=== PATIENT | female | born 1945 | race African-American/Black ===

== ENCOUNTER 2022-04-05 11:38 | Emergency (ER) | payer MEDICARE, SELFPAY ==
--- NOTE | ~2022-04-05 | XR_ITS ---
XR elbow RT min 3V DATE: 04/05/2022 12:28 INDICATION: Elbow swelling. No known injury. TECHNIQUE: 4 views COMPARISON: None FINDINGS: There is prominent dorsal soft tissue swelling overlying the olecranon process, consistent with olecranon bursitis. No fracture or dislocation or joint effusion. No periosteal reaction or bone destruction. IMPRESSION: Olecranon bursitis Reviewed, dictated and finalized at location A. IMPRESSION: Olecranon bursitis
[2022-04-05 11:48] VITALS: BP 148/64; PULSE 84; RESP 16; TEMP 36.5; O2SAT 100
--- NOTE | 2022-04-05 13:12 | ED.UPPEXIN ---
HPI - Extremity Injury (Upper) General Chief Complaint: Extremity Injury, Upper Stated Complaint: swelling right elbow Time Seen by Provider: 04/05/22 12:22 History of Present Illness HPI narrative: 76-year-old female presenting with swelling in her right elbow, she states that this is happened in the past where she has needed to be drained, states that she has already iced it, elevated and is already less swelling. Denies any pain, or any recent trauma, states that she has been using her arms a lot recently at home and has been quite busy. No fevers no chills. No pain with movement. Related Data Allergies Allergy/AdvReac Type Severity Reaction Status Date / Time melon Allergy Gastrointestinal Verified 04/05/22 12:20 Upset Review of Systems Review of Systems: CONST: No fever. M/S: Right elbow swelling PMFSH Past Medical History Medical History (Updated 04/06/22 @ 06:59 by Lucrecia Garsia MD) Bursitis Exam Narrative: EXAMINATION OF ORGAN SYSTEMS/BODY AREAS: Constitutional: Vital signs per nursing GENERAL:[No acute distress, non-toxic appearing.] LUNGS: Nonlabored breathing. HEART: [Regular rate and rhythm] EXT: Normal range of motion; swelling of the right elbow that is painless, full painless range of motion. Neurovascularly intact SKIN: No erythema of the elbow NEURO: [Alert and oriented x 3. No gross focal sensory or strength deficits.] PSYCH: Normal affect Course Vital Signs Vital signs: Vital Signs Temperature 97.7 F 04/05/22 11:48 Pulse Rate 84 04/05/22 11:48 Respiratory Rate 16 04/05/22 11:48 Blood Pressure 148/64 H 04/05/22 11:48 Pulse Oximetry 100 04/05/22 11:48 Oxygen Delivery Room Air 04/05/22 11:48 Temperature 97.7 F 04/05/22 11:48 Pulse Rate 84 04/05/22 11:48 Respiratory Rate 16 04/05/22 11:48 Blood Pressure 148/64 H 04/05/22 11:48 Pulse Oximetry 100 04/05/22 11:48 Oxygen Delivery Room Air 04/05/22 11:48 MDM - Extremity Injury (Upper) MDM Narrative Medical decision making narrative: 76-year-old female presenting this morning, vital stable, exam shows painless swelling and range of motion of the right elbow, consistent with bursitis, doubt fracture or septic joint without any pain, x-rays consistent with olecranon bursitis, Keron wrap applied and patient stable for discharge home with follow-up with her own doctor. Return precautions provided. Discharge Plan Discharge Clinical Impression: Bursitis, olecranon Patient Disposition: Home, Self-Care Condition: Stable Instructions: Antibiotic Form, Elbow Bursitis (ED) Additional Instructions: Please keep the elbow elevated and in the compression wrap if possible. You can follow up with your doctor if it doesn't improve in 1-2 weeks or if you notice any pain, redness, fevers or chills. Follow-up/Referrals: PHYSICIAN NOT ON STAFF,NONSTAFF [Primary Care Provider] -
== END 2022-04-05 13:26 | disposition home or self-care (01) ==
PROVIDERS: Emergency Provider Emergency Medicine
DX: M70.21 Olecranon bursitis, right elbow (principal)
CPT/HCPCS: 73080; 99283

== ENCOUNTER 2022-11-03 09:02 | Outpatient (CLI) | payer MEDICARE, SELFPAY ==
[2022-11-03 09:22] LABS: Basophils Percent Auto 0.7 % (0.2-1.2); Eosinophils Absolute Auto 0.1 K/mm3 (0-0.3); Eosinophils Percent Auto 1.7 % (0-4.4); Hematocrit 34.9 % (37.0-47.0); Hemoglobin 11.7 g/dL (12.0-15.0); Immature Granulocyte Absolute 0.01 K/mm3 (0.00-0.031); Immature Granulocyte Percent A 0.2 % (0-0.5); Lymphocytes Absolute Auto 2.46 K/mm3 (0.9-3.2); Lymphocytes Percent Auto 41.3 % (18.3-44.2); Mean Corpuscular HGB Conc 33.5 g/dl (32-36); Mean Corpuscular Hemoglobin 31.9 pg (26-34); Mean Corpuscular Volume 95.1 fl (80-100); Mean Platelet Volume 8.9 fl (7.4-10.4); Monocytes Absolute Auto 0.5 K/mm3 (0.1-0.6); Monocytes Percent Auto 8.1 % (2.6-8.5); Neutrophils Absolute Auto 2.9 K/mm3 (1.3-6.7); Platelet Count Result 253 k/mm3 (150-375); Red Blood Count 3.67 M/mm3 (4.2-5.4)
[2022-11-03 10:41] LABS: Alanine Aminotransferase 14 U/L (6-35); Albumin Level 4.2 g/dL (3.5-5.1); Alkaline Phosphatase 78 U/L (38-126); Anion Gap 8 mmol/L (8-16); Aspartate Amino Transferase 20 U/L (14-36); Bilirubin,Total 0.5 mg/dL (0.2-1.3); Blood Urea Nitrogen 19 mg/dL (7-17); Calcium 9.4 mg/dL (8.4-10.2); Carbon Dioxide 27 mmol/L (22-30); Chloride 104 mmol/L (98-107); Cholesterol 221 mg/dL (0-200); Estimated Glomerular Filt Rate > 60; Glucose 171 mg/dL (65-110); HDL Direct 104 mg/dL; Potassium 3.9 mmol/L (3.4-5.0); Sodium 139 mmol/L (137-145); Triglycerides 47 mg/dL (<150)
[2022-11-03 10:52] LABS: LDL Cholesterol Direct 72 mg/dL
[2022-11-03 10:59] LABS: Vitamin D 25 Hydroxy 56.8 ng/mL
[2022-11-03 11:25] LABS: Hemoglobin A1C 7.8 % (<5.7)
[2022-11-03 11:40] LABS: Creatinine Urine 57.9 mg/dL
[2022-11-03 13:04] LABS: MALB Creatinine Ratio < 10.4 mg/g (0-30); Microalbumin Urine Random < 6.0 mg/L (0-16.7)
== END 2022-11-03 09:03 | disposition home or self-care (01) ==
LOC: ANHLAB 09:03
PROVIDERS: PCP Family Medicine; Visit Provider Internal Medicine Hematology & Oncology
DX: E53.8 Deficiency of other specified B group vitamins (principal); E55.9 Vitamin D deficiency, unspecified; E11.9 Type 2 diabetes mellitus without complications; E78.5 Hyperlipidemia, unspecified; I10 Essential (primary) hypertension
CPT/HCPCS: 36415; 80053; 80061; 82043; 82306; 82607; 83036; 84443; 85025

== ENCOUNTER 2023-01-19 12:36 | Outpatient (CLI) | payer MEDICARE, SELFPAY ==
[2023-01-19 19:24] LABS: Basophils Percent Auto 0.5 % (0.2-1.2); Eosinophils Absolute Auto 0.1 K/mm3 (0-0.3); Hematocrit 38.3 % (37.0-47.0); Hemoglobin 12.9 g/dL (12.0-15.0); Immature Granulocyte Absolute 0.01 K/mm3 (0.00-0.031); Immature Granulocyte Percent A 0.1 % (0-0.5); Lymphocytes Absolute Auto 1.79 K/mm3 (0.9-3.2); Lymphocytes Percent Auto 23.3 % (18.3-44.2); Mean Corpuscular HGB Conc 33.7 g/dl (32-36); Mean Corpuscular Hemoglobin 31.1 pg (26-34); Mean Corpuscular Volume 92.3 fl (80-100); Mean Platelet Volume 9.7 fl (7.4-10.4); Monocytes Absolute Auto 0.5 K/mm3 (0.1-0.6); Monocytes Percent Auto 6.1 % (2.6-8.5); Neutrophils Absolute Auto 5.3 K/mm3 (1.3-6.7); Platelet Count Result 271 k/mm3 (150-375); Red Blood Count 4.15 M/mm3 (4.2-5.4); Red Cell Distribution Width 14.1 % (11.5-14.5); White Blood Count 7.7 K/mm3 (4.5-10.0)
[2023-01-19 19:55] LABS: Iron 92 ug/dL (37-170)
[2023-01-19 20:06] LABS: Percent Iron Saturation 31 % (20-50)
[2023-01-19 20:27] LABS: Alanine Aminotransferase 18 U/L (6-35); Albumin Level 4.9 g/dL (3.5-5.1); Alkaline Phosphatase 90 U/L (38-126); Anion Gap 7 mmol/L (8-16); Aspartate Amino Transferase 41 U/L (14-36); Bilirubin,Total 0.6 mg/dL (0.2-1.3); Blood Urea Nitrogen 17 mg/dL (7-17); Calcium 10.2 mg/dL (8.4-10.2); Carbon Dioxide 29 mmol/L (22-30); Chloride 105 mmol/L (98-107); Estimated Glomerular Filt Rate > 60; Glucose 109 mg/dL (65-110); Potassium 3.9 mmol/L (3.4-5.0); Sodium 141 mmol/L (137-145)
== END 2023-01-19 12:37 | disposition home or self-care (01) ==
LOC: ANHGOSHLAB 12:39
PROVIDERS: PCP Family Medicine; Visit Provider Family Medicine
DX: D64.9 Anemia, unspecified (principal); I10 Essential (primary) hypertension; E11.9 Type 2 diabetes mellitus without complications
CPT/HCPCS: 36415; 80053; 82728; 83036; 83540; 83550; 85025

== ENCOUNTER 2023-01-24 08:21 | Outpatient (CLI) | payer MEDICARE, SELFPAY ==
--- NOTE | ~2023-01-24 | MM_ITS ---
EXAMINATION: MM screening [place] BI w [place] HISTORY: Screening TECHNIQUE: Craniocaudal and mediolateral oblique 3-D tomosynthesis images were obtained and synthetic 2-D images were generated. CAD analysis was submitted and interpreted. COMPARISON: No prior mammogram is available for comparison at this institution. BREAST PARENCHYMAL COMPOSITION: The breasts are heterogeneously dense, which may obscure small masses . FINDINGS: There is no evidence of suspicious mass, calcification, or architectural distortion to sugg est malignancy in either breast. There has been no suspicious interval change. IMPRESSION: 1. No mammographic evidence of malignancy. 2. Recommend routine screening mammography in one year. BI-RADS Category 1: Negative Reviewed, dictated and finalized at location A.
--- NOTE | ~2023-01-24 | DEXA_ITS ---
Bone Density Report Name: STACEY URIBE Age: 77 Sex: Female Ethnicity: White Date of : 1945 Indication: postmenopausal; screening for osteoporosis; height loss; hysterectomy; Referring Provider: JESSICA MANRIQUE Study: Bone densitometry was performed. Exam Date: January 24, 2023 Accession number: [id number] Bone Density: Region BMD T-score Z-score Classification AP Spine(L1-L4) 0.945 -0.9 1.5 Normal Femoral Neck (Left) 0.925 0.7 2.8 Normal Total Hip (Left) 0.924 -0.1 1.7 Normal Femoral Neck (Right) 0.884 0.3 2.4 Normal Total Hip (Right) 0.889 -0.4 1.4 Normal Total Hip Mean 0.907 -0.3 1.6 Normal World Health Organization criteria for BMD impression classify patients as: Normal (T-score at or above -1.0), Osteopenia (T-score between -1.0 and -2.5), or Osteoporosis (T-score at or below -2.5). 10-year Fracture Risk: FRAX not reported because: All T-scores for Spine Total, Hip Total, Femoral Neck at or above -1.0 Clinical Information Provided by Patient: Has used the following medications: Vitamin D, Calcium Has the following medical conditions: Hysterectomy Patient maximum height was 67 Menopause Age: 42 Drinks caffeinated beverages Onset of menses at age 18 Number of children 2 Impression: UNAPPROVED The patient has normal bone mass. Discussion: UNAPPROVED BONE DENSITY IS ABOVE THE MINIMUM DESIRABLE LEVEL AT ALL SKELETAL SITES TESTED. This patient?s bone mineral density is above the minimum desirable level (T-score -1.0 or better) at all sites measured. The patient should follow a healthful lifestyle (good nutrition with adequate calcium and vitamin D, and appropriate weight-bearing exercise). Follow-Up: UNAPPROVED Consider repeating this study in 5 years or sooner if there is some new clinical indication. Reported by: JORGE A on 01/24/2023 8:58:00 AM. Reviewed, dictated and finalized at location [facility]
== END 2023-01-24 08:22 | disposition home or self-care (01) ==
LOC: ANHIMG 08:22
PROVIDERS: PCP Family Medicine; Visit Provider Family Medicine
DX: Z12.31 Encounter for screening mammogram for malignant neoplasm of breast (principal); Z78.0 Asymptomatic menopausal state
CPT/HCPCS: 77063; 77067; 77080

== ENCOUNTER 2024-10-29 09:59 | Outpatient (CLI) | payer MEDICARE, SELFPAY ==
[2024-10-29 10:23] LABS: Basophils Percent Auto 0.4 % (0.2-1.2); Eosinophils Absolute Auto 0.1 K/mm3 (0-0.3); Eosinophils Percent Auto 1.7 % (0-4.4); Hematocrit 38.4 % (37.0-47.0); Hemoglobin 12.7 g/dL (12.0-15.0); Immature Granulocyte Absolute 0.01 K/mm3 (0.00-0.031); Immature Granulocyte Percent A 0.1 % (0-0.5); Lymphocytes Absolute Auto 2.65 K/mm3 (0.9-3.2); Lymphocytes Percent Auto 38.4 % (18.3-44.2); Mean Corpuscular HGB Conc 33.1 g/dl (32-36); Mean Corpuscular Volume 93.7 fl (80-100); Mean Platelet Volume 8.6 fl (7.4-10.4); Monocytes Absolute Auto 0.7 K/mm3 (0.1-0.6); Monocytes Percent Auto 9.6 % (2.6-8.5); Neutrophils Absolute Auto 3.4 K/mm3 (1.3-6.7); Neutrophils Percent Auto 49.8 % (45.5-73.1); Platelet Count Result 282 k/mm3 (150-375); Red Cell Distribution Width 14.3 % (11.5-14.5); White Blood Count 6.9 K/mm3 (4.5-10.0)
[2024-10-29 12:11] LABS: Hemoglobin A1C 7.2 % (<5.7)
[2024-10-29 12:38] LABS: Creatinine Urine 50.8 mg/dL
[2024-10-29 12:39] LABS: LDL Cholesterol Direct 54 mg/dL
[2024-10-29 12:41] LABS: Alanine Aminotransferase 14 U/L (6-35); Albumin Level 4.2 g/dL (3.5-5.1); Alkaline Phosphatase 84 U/L (38-126); Anion Gap 2 mmol/L (4-12); Aspartate Amino Transferase 26 U/L (14-36); Bilirubin,Total 0.6 mg/dL (0.2-1.3); Blood Urea Nitrogen 15 mg/dL (7-17); Calcium 9.6 mg/dL (8.4-10.2); Carbon Dioxide 26 mmol/L (22-30); Chloride 106 mmol/L (98-107); Cholesterol 201 mg/dL (0-200); Estimated Glomerular Filt Rate > 60; Glucose 164 mg/dL (65-110); Potassium 3.8 mmol/L (3.4-5.0); Sodium 134 mmol/L (137-145); Triglycerides 50 mg/dL (<150)
[2024-10-29 13:01] LABS: HDL Direct 120 mg/dL
[2024-10-29 13:02] LABS: MALB Creatinine Ratio < 11.8 mg/g (0-30); Microalbumin Urine Random < 6.0 mg/L (0-16.7); Vitamin D 25 Hydroxy 53.7 ng/mL
== END 2024-10-29 10:00 | disposition home or self-care (01) ==
LOC: ANHLAB 10:02
PROVIDERS: PCP Family Medicine; Visit Provider Family Medicine
DX: E78.5 Hyperlipidemia, unspecified (principal); E11.9 Type 2 diabetes mellitus without complications; I10 Essential (primary) hypertension; E53.8 Deficiency of other specified B group vitamins; E55.9 Vitamin D deficiency, unspecified
CPT/HCPCS: 36415; 80053; 80061; 82043; 82306; 82607; 83036; 84443; 85025

== ENCOUNTER 2024-11-08 10:10 | Emergency (ER) | payer MEDICARE, SELFPAY ==
--- NOTE | ~2024-11-08 | XR_ITS ---
EXAMINATION: XR_[id number]_CR DATE: 11/08/2024 12:40 INDICATION: Neck pain. Left shoulder pain. TECHNIQUE: 4 views of cervical spine were obtained. COMPARISON: None. FINDINGS: There is 4 degrees levocurvature of cervical spine. There is kyphosis of cervical spine. Th ere is 2 mm retrolisthesis of C4 on C5, C5 on C6, and C6 on C7. Vertebral body heights are normal. Th ere is moderately decreased disc height at C4-C5 and severely decreased disc height at C5-C6 and C6-C 7. There is multilevel mild facet joint osteoarthritis. There is mild central canal stenosis at C4-C5 , C5-C6, and C6-C7. No prevertebral soft tissue swelling. IMPRESSION: 1. Severe cervical spondylosis. Reviewed, dictated and finalized at location A. [employer]
[2024-11-08 10:12] VITALS: BP 150/74; PULSE 112; RESP 16; TEMP 36.2; O2SAT 100
[2024-11-08 11:56] VITALS: BP 143/92; PULSE 105; RESP 20; O2SAT 100
[2024-11-08] MEDS: KETOROLAC 30 MG/ML VIAL (*BKC) IM (12:31)
--- NOTE | 2024-11-08 12:59 | ED.GENADULT ---
HPI - General Adult General Chief complaint: Neck Pain/Injury Stated complaint: NECK AND L ARM PAIN AFTER PULLED BY DOG Time Seen by Provider: 11/08/24 12:01 History of Present Illness HPI narrative: Patient is a 79-year-old female who presents ER with pain to left neck and shoulder. She was walking family member's dog that likes to pull her has caused increased pain. Pain is worse with turning her head and moving her arm. She has taken no pain medication because she does not like taking medicine that has not been prescribed by . She has no numbness or tingling to her arms or legs. She is experiencing no chest pain. No dyspnea. No exertional dyspnea. She has had no hemoptysis and has no pain with deep breath. Related Data Home Medications ?Medication ?Instructions ?Recorded ?Confirmed ?Last Taken ?Type cetirizine 10 mg tablet (Zyrtec) 10 mg PO DAILY PRN 01/19/23 10/26/24 Unknown History metformin 500 mg tablet 500 mg PO BID 10/26/24 10/26/24 Unknown History progynova BYMOUTH 10/26/24 Unknown History Allergies Allergy/AdvReac Type Severity Reaction Status Date / Time melon Allergy Gastrointestinal Verified 11/08/24 10:12 Upset Review of Systems Review of Systems: All systems reviewed & are unremarkable except as noted in HPI and below Constitutional: Constitutional: Reports no additional constitutional complaints ENT: Reports system reviewed and no additional complaints, except as documented Cardiovascular: Cardiovascular: Reports no additional cardiovascular complaints Respiratory: Respiratory: Reports no additional respiratory complaints Musculoskeletal: Musculoskeletal: Reports no additional musculoskeletal complaints [facility] Past Medical History Medical History Postmenopausal hormone replacement therapy Constipation Environmental allergies Dupuytren's contracture of left hand Chronic low back pain Osteoarthritis Type 2 diabetes mellitus without complications Essential (primary) hypertension Bursitis Surgical History Surgical History H/O: hysterectomy (~1979) Social History Social History Smoking status: Never smoker Alcohol intake: current Substance use: never Substance use type: does not use Lack of Transportation: No Lack of Food: Never True Current Housing: I Have Housing Concerned About Future Housing: No Difficulty Paying Gas/Electric Bills: No Difficulty Paying for Meds: No Currently Unemployed: No Education: Associate Degree Difficulty w/ Childcare or Family Care: No Exam Narrative: GENERAL: Well-appearing, well-nourished, and in no acute distress. HEAD: Normocephalic, atraumatic. ENT: Mucous membranes moist. NECK: Supple. Full range of motion. Point tenderness over the paraspinal musculature on left side of the cervical spine. CHEST: Clear to auscultation. No respiratory distress. HEART: Tachycardic and regular. Normal peripheral pulses. EXTREMITIES: Normal range of motion. No edema. NEURO: Alert and oriented x3. PSYCH: Normal mood and affect. Course Course Emergency Course: Toradol IM. X-ray without acute fracture. Discharge home with anti-inflammatories muscle relaxers. Vital Signs Vital signs: Vital Signs Temperature 97.2 F L 11/08/24 10:12 Pulse Rate 112 H 11/08/24 10:12 Respiratory Rate 16 11/08/24 10:12 Blood Pressure 150/74 H 11/08/24 10:12 Pulse Oximetry 11/08/24 10:12 Oxygen Delivery Room Air 11/08/24 10:12 Temperature 97.2 F L 11/08/24 10:12 Pulse Rate 105 H 11/08/24 11:56 Respiratory Rate 20 11/08/24 11:56 Blood Pressure 143/92 H 11/08/24 11:56 Pulse Oximetry 11/08/24 11:56 Oxygen Delivery Room Air 11/08/24 10:12 Medical Decision Making Vital Signs Vital Signs: Vital Signs Temperature 97.2 F L 11/08/24 10:12 Pulse Rate 112 H 11/08/24 10:12 Respiratory Rate 16 11/08/24 10:12 Blood Pressure 150/74 H 11/08/24 10:12 Pulse Oximetry 100 11/08/24 10:12 Oxygen Delivery Room Air 11/08/24 10:12 Temperature 97.2 F L 11/08/24 10:12 Pulse Rate 105 H 11/08/24 11:56 Respiratory Rate 20 11/08/24 11:56 Blood Pressure 143/92 H 11/08/24 11:56 Pulse Oximetry 100 11/08/24 11:56 Oxygen Delivery Room Air 11/08/24 10:12 Discharge Plan Discharge Clinical Impression: Cervical strain Patient Disposition: Home, Self-Care Condition: Stable Instructions: Cervical Strain (ED) Additional Instructions: Please return to the emergency department if you develop severe pain that is not controlled by pain medications or if you are unable to walk because of pain or weakness. Return to the emergency department immediately if you develop fevers, loss of bowel or bladder control (dribbling of urine or having accidents you wouldn't normally have), inability to urinate, numbness of your genital or anal area, or weakness/numbness of your legs or arms as these could all be signs of a serious medical emergency. Patient Language: Moz[place] Prescriptions: New tizanidine 2 mg capsule 2 mg PO Q8H PRN (Reason: muscle spasticity) Qty: 14 0RF naproxen 250 mg tablet 250 mg PO BID Qty: 14 0RF No Action cetirizine [Zyrtec] 10 mg tablet 10 mg PO DAILY PRN metformin 500 mg tablet 500 mg PO BID progynova BYMOUTH Patient Comments: hormo Rx Instructions: 2mg po daily meclizine 25 mg tablet 25 mg PO TID PRN (Reason: dizziness) Qty: 30 0RF losartan 50 mg tablet 50 mg PO DAILY Qty: 90 1RF Follow-up/Referrals: Malik Grant MD [Primary Care Provider] - 1 Week
== END 2024-11-08 13:27 | disposition home or self-care (01) ==
PROVIDERS: Emergency Provider Emergency Medicine; PCP Family Medicine
DX: S16.1XXA Strain of muscle, fascia and tendon at neck level, initial encounter (principal); I10 Essential (primary) hypertension; E11.9 Type 2 diabetes mellitus without complications; M72.0 Palmar fascial fibromatosis [Dupuytren]; M19.90 Unspecified osteoarthritis, unspecified site; Z90.710 Acquired absence of both cervix and uterus; Z79.899 Other long term (current) drug therapy; X50.9XXA Other and unspecified overexertion or strenuous movements or postures, initial encounter
CPT/HCPCS: 72040; 96372; 99283; J1885